=== PATIENT | female | born 1990 | race Caucasian/White ===

== ENCOUNTER 2022-02-23 18:53 | Emergency (ER) | payer MEDICAID ==
[~2022-02-23] VITALS: Ht 177.8 cm; Wt 79.4 kg
== END 2022-02-23 20:48 | disposition home or self-care (01) ==
LOC: ER 18:53
DX: S93.402A Sprain of unspecified ligament of left ankle, initial encounter (principal); F98.8 Other specified behavioral and emotional disorders with onset usually occurring in childhood and adolescence; X50.0XXA Overexertion from strenuous movement or load, initial encounter; Z91.018 Allergy to other foods; Z79.899 Other long term (current) drug therapy
CPT/HCPCS: 73610